=== PATIENT | male | born 1940 | race Caucasian/White ===

== ENCOUNTER → 2017-11-07 16:06 | Outpatient (CLI) | payer MEDICARE, BC, SELFPAY ==
[2017-11-07 16:52] LABS: Abs Immature Grans 0.01 k/cumm (0.0-0.09); Absolute Basophil Count 0.02 k/cumm (0.0-0.2); Absolute Eosinophil Count 0.09 k/cumm (0.0-0.7); Absolute Lymphocyte Count 2.15 k/cumm (1.2-3.4); Absolute Monocyte Count 0.44 k/cumm (0.11-0.7); Absolute Neutrophil Count 4.22 k/cumm (1.2-6.7); Basophils % 0.3; Eosinophils % 1.3; HCT 42.1 % (40.0-50.0); HGB 14.8 g/dL (13.5-17.5); Immature Grans % 0.1; Mean Corp. HGB Concentration 35.2 g/dL (32.0-36.0); Mean Corpuscular Hemoglobin 29.9 pg (27.0-33.0); Mean Corpuscular Volume 85.1 fL (80-95); Mean Platelet Volume 10.6 fL (8.0-11.0); Monocytes % 6.3; Platelet Count 248 x1000/uL (130-400); RBC 4.95 m/cumm (4.50-6.00); RBC Distribution Width 14.3 % (11.8-14.1); White Blood Cell Count 6.93 k/cumm (4.4-10.8)
[2017-11-07 17:51] LABS: ALT 21 U/L (12-78); AST 15 U/L (15-37); Albumin 4.3 g/dL (3.4-5.0); Alkaline Phosphatase 71 U/L (46-116); Anion Gap 8.6 mmol/L (3-11); BUN 18 mg/dL (7-18); CO2 27.4 mmol/L (21.0-32.0); CREATININE 1.08 mg/dL (0.70-1.30); Calcium 8.9 mg/dL (8.5-10.1); Chloride 105 mmol/L (98-107); Glucose 91 mg/dL (70-100); Potassium 4.1 mmol/L (3.5-5.1); Sodium 141 mmol/L (136-145); TSH (W/Ref FT4) 3.72 uIU/mL (0.358-3.74); Total Protein 7.3 g/dL (6.4-8.2); Vitamin B12 437 pg/mL (193-986)
[2017-11-07 18:08] LABS: Bilirubin, Total 0.6 mg/dL (0.2-1.0)
[2017-11-07 18:11] LABS: ESR 10 MM/HR (1-20)
== END ==
PROVIDERS: PCP Emergency Medicine; Visit Provider Family Medicine
DX: R41.3 Other amnesia (principal)
CPT/HCPCS: 36415; 80053; 85652; 82607; 84443; 85025

== ENCOUNTER → 2017-11-19 08:45 | Outpatient (CLI) | payer MEDICARE, BC, SELFPAY | PROVIDERS: PCP Emergency Medicine; Visit Provider Nurse Practitioner Adult Health | DX: H53.462 Homonymous bilateral field defects, left side (principal) | CPT/HCPCS: 99215 ==

== ENCOUNTER → 2017-11-24 00:47 | Outpatient (CLI) | payer MEDICARE, BC, SELFPAY ==
--- NOTE | 2017-11-24 08:45 | DI.REPORT_ITS ---
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 T 2 sagittal, T 1, T 2, FLAIR, diffusion and gradient echo axial sequences were performed. There is moderate to severe cerebral cortical atrophy. There are multiple high signal foci bilaterally in the white matter, likely reflecting small vessel disease. 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 There is an area of restricted diffusion seen in the right occipital lobe which could indicate an acute infarct. The splenium of the corpus callosum is involved. The ventricles are mildly dilated consistent with a degree of atrophy. The vascular flow voids appear intact although the right posterior cerebral artery is not well seen due to its small size. IMPRESSION: The findings are consistent with a subacute infarct in the right occipital lobe, in the posterior cerebral artery distribution.
== END ==
PROVIDERS: PCP Emergency Medicine; Visit Provider Nurse Practitioner Adult Health
DX: H53.462 Homonymous bilateral field defects, left side (principal); I63.541 Cerebral infarction due to unspecified occlusion or stenosis of right cerebellar artery; G31.1 Senile degeneration of brain, not elsewhere classified
CPT/HCPCS: 70551

== ENCOUNTER → 2017-11-26 01:54 | Outpatient (CLI) | payer MEDICARE, BC, SELFPAY ==
[2017-11-26 09:11] LABS: Hemoglobin A1C 5.6 % (4.5-6.2)
[2017-11-26 09:52] LABS: Cholesterol 164 mg/dL (50-200); HDL Cholesterol 37 mg/dL (40-60); LDL CHOLESTEROL 108 mg/dL (<100); Triglyceride 171 mg/dL (30-150)
== END ==
PROVIDERS: PCP Emergency Medicine; Visit Provider Psychiatry & Neurology Neurology
DX: I63.331 Cerebral infarction due to thrombosis of right posterior cerebral artery (principal); H53.462 Homonymous bilateral field defects, left side; R41.3 Other amnesia
CPT/HCPCS: 36415; 80061; 83721; 83036

== ENCOUNTER → 2017-12-03 08:30 | Outpatient (CLI) | payer MEDICARE, BC, SELFPAY | PROVIDERS: PCP Emergency Medicine; Visit Provider Psychiatry & Neurology Neurology | DX: I63.331 Cerebral infarction due to thrombosis of right posterior cerebral artery (principal) | CPT/HCPCS: 99214 ==

== ENCOUNTER 2017-12-04 00:46 | Outpatient (CLI) | payer MEDICARE, BC, SELFPAY ==
--- NOTE | 2017-12-04 07:30 | MERGE_ITS ---
*[facility]* *[facility]* [address] [place] [address] Date of study: 12/04/2017 Transthoracic Echocardiography M-mode, complete 2D, complete spectral Doppler, and color Doppler *STUDY CONCLUSIONS* Summary: 1. Left ventricle: The cavity size was normal. Wall thickness was increased in a pattern of mild LVH. Systolic function was normal. The estimated ejection fraction was 55-60%. Wall motion was normal; there were no regional wall motion abnormalities. 2. Right ventricle: The cavity size was normal. Systolic function was normal. 3. Inferior vena cava: The vessel was patent and normal in size. The respirophasic diameter changes were in the normal range (greater than or equal to 50%), consistent with normal central venous pressure. *PATIENT PRESENTATION* Height: 177.8cm ((70in) ) S/D Pressure: 117 / 60 Weight: 88.5kg ((194.6lb) ) BSA: 2.11m^2 Test start time: 07:40 AM. Test stop time: 08:30 AM. PERFORMING Unknown PERFORMING [facility] ORDERING Nelida Souza REFERRING Nelida Souza VOICE PATHOLOGIST RT Jason (R)(WILL)MEGHANN *PROCEDURE DATA* Procedure information: The patient was identified by two identifiers. This study was interpreted by [facility]. Pertinent images and digital data are archived for permanent storage and are available for subsequent review. No prior study was available for comparison. Study status: Routine. Transthoracic echocardiography. M-mode, complete 2D, complete spectral Doppler, and color Doppler. A Transthoracic Echocardiogram was performed. Scanning was performed from the parasternal, apical, subcostal, and suprasternal notch acoustic windows. Images were obtained using an [id number] cardiac ultrasound machine. Image quality was adequate. Study completion: The patient tolerated the procedure well. There were no complications. History: PMH: R [employer] LATHER stroke. CVA. *CARDIAC ANATOMY* Left ventricle: The cavity size was normal. Wall thickness was increased in a pattern of mild LVH. Systolic function was normal. The estimated ejection fraction was 55-60%. Wall motion was normal; there were no regional wall motion abnormalities. Findings consistent with diastolic dysfunction. There was no evidence of elevated ventricular filling pressure by Doppler parameters. Aortic valve: Trileaflet; mildly thickened leaflets. Mobility was not restricted. Doppler: Transvalvular velocity was within the normal range. There was no stenosis. There was mild regurgitation. VTI ratio of LVOT to aortic valve: 0.76. Valve area (VTI): 2.8cm^2. Indexed valve area (VTI): 1.3cm^2/m^2. Peak velocity ratio of LVOT to aortic valve: 0.66. Valve area (Vmax): 2.4cm^2. Indexed valve area (Vmax): 1.1cm^2/m^2. Mean velocity ratio of LVOT to aortic valve: 0.68. Valve area (Vmean): 2.5cm^2. Indexed valve area (Vmean): 1.2cm^2/m^2. Mean gradient (S): 6.4mm Hg. Peak gradient (S): 12.5mm Hg. Aorta: Aortic root: The aortic root was normal in size. Ascending aorta: The ascending aorta was normal in size. Mitral valve: Mildly thickened leaflets. Mobility was not restricted. Doppler: Transvalvular velocity was within the normal range. There was no evidence for stenosis. There was trivial regurgitation. Valve area by pressure half-time: 2.7cm^2. Indexed valve area by pressure half-time: 1.3cm^2/m^2. Left atrium: The atrium was normal in size. Right ventricle: The cavity size was normal. Systolic function was normal. Pulmonic valve: The pulmonary valve appears to be grossly normal. Doppler: Transvalvular velocity was within the normal range. There was no evidence for stenosis. There was trivial regurgitation. Tricuspid valve: Structurally normal valve. Doppler: Transvalvular velocity was within the normal range. There was no evidence for stenosis. There was mild regurgitation. Pulmonary artery: The main pulmonary artery was normal-sized. Pulmonary systolic pressure was in the range of 30mm Hg to 35mm Hg. Right atrium: The atrium was normal in size. Pericardium: There was no pericardial effusion. Systemic veins: Inferior vena cava: Well visualized. The vessel was patent and normal in size. The respirophasic diameter changes were in the normal range (greater than or equal to 50%), consistent with normal central venous pressure. Baseline ECG: Bradycardia. Measurements Left ventricle Value Reference LV ID, ED, PLAX 5.0 cm 3.5 - 6.0 LV ID, ES, PLAX 2.7 cm 2.1 - 4.0 LV PW thickness, ED, PLAX 1.1 cm LV end-diastolic volume, 1-p A2C 106 ml LV ejection fraction, 1-p A2C 55 % LV end-diastolic volume, 1-p A4C 85 ml LV ejection fraction, 1-p A4C 59 % LV e', lateral 0.104 m/sec LV E/e', lateral 7 LV e', medial 0.076 m/sec LV E/e', medial 9 LV e', average 0.09 m/sec LV E/e', average 8 Ventricular septum Value Reference IVS thickness, ED, PLAX 1.2 cm LVOT Value Reference LVOT ID, A-P 2.2 cm LVOT area 3.7 cm^2 LVOT peak velocity, S 1.17 m/sec LVOT mean velocity, S 0.82 m/sec LVOT VTI, S 29.2 cm LVOT peak gradient, S 5.5 mm Hg LVOT mean gradient, S 3 mm Hg Stroke volume (SV), LVOT DP 107 ml Stroke index (SV/bsa), LVOT DP 51 ml/m^2 Aortic valve Value Reference Aortic valve peak velocity, S 1.8 m/sec Aortic valve mean velocity, S 1.2 m/sec Aortic valve VTI, S 38.5 cm Aortic mean gradient, S 6.4 mm Hg Aortic peak gradient, S 12.5 mm Hg VTI ratio, LVOT/AV 0.76 Aortic valve area, VTI 2.8 cm^2 Velocity ratio, peak, LVOT/AV 0.66 Aortic valve area, peak velocity 2.4 cm^2 Velocity ratio, mean, LVOT/AV 0.68 Aortic valve area, mean velocity 2.5 cm^2 Aortic valve area/bsa, mean velocity 1.2 cm^2/m^2 Aortic regurg deceleration 245 cm/s^2 Aortic regurg pressure half-time 430 ms Aorta Value Reference Aortic root ID, ED 3.6 cm Ascending aorta ID, A-P, S 3.7 cm RVOT Value Reference RVOT VTI, S 17.0 cm Left atrium Value Reference LA ID, A-P, ES 3.9 cm LA ID/bsa, A-P 1.9 cm/m^2 <=2.2 LA area, ES, A4C 18.3 cm^2 8.8 - 23.4 LA area, ES, A2C 19 cm^2 LA volume/bsa, ES, 1-p A4C 26 ml/m^2 LA volume, ES, 2-p 51 ml LA volume/bsa, ES, 2-p 24 ml/m^2 LA/aortic root ratio 1.08 Mitral valve Value Reference Mitral E-wave peak velocity 0.69 m/sec Mitral A-wave peak velocity 0.82 m/sec Mitral deceleration time (H) 285 ms 150 - 230 Mitral pressure half-time 83 ms Mitral E/A ratio, peak 0.83 Mitral valve area, PHT, DP 2.7 cm^2 Pulmonary veins Value Reference Pulmonary vein peak velocity, S 0.52 m/sec Pulmonary vein peak velocity, D 0.46 m/sec Pulmonary vein velocity ratio, peak, 1.12 S/D Pulmonary vein A-wave reversal peak 0.38 m/sec velocity Pulmonary vein A-wave reversal 193 ms duration Tricuspid valve Value Reference Tricuspid regurg peak velocity 2.9 m/sec Tricuspid peak RV-RA gradient 32.9 mm Hg Right atrium Value Reference RA area, ES, A4C 17.1 cm^2 8.3 - 19.5 Legend: (L) and (H) siomara values outside specified reference range. I have personally reviewed the images and have reviewed and edited the reported findings. Electronically signed by Gamal Rodrigez 12/04/2017 09:21
--- NOTE | 2017-12-24 09:46 | ZIOP_ITS ---
ZIO PATCH REPORT DATE OF DICTATION December 24, 2017 STUDY INDICATION Stroke REQUESTING PROVIDER Nelida Souza M.D. FINDINGS The patient was monitored for 14 days. COMMENTS The predominant underlying rhythm was sinus rhythm with bundle branch block. Average heart rate in sinus. 64 beats per minute. Range 38 to 138 beats per minute. There was rare ectopy. There were 6 episodes of supraventricular tachycardia. Average heart rate 125 beats per minute. Range 95 to 154 beats per minute. The longest episode lasted 17 beats. There was nocturnal bradycardia. There were no pauses greater than 3 seconds. There was no higher degree heart block. There were 4 patient events. All events correlated with sinus rhythm. FINAL INTERPRETATION Minor atrial arrhythmias. José Miguel Andersen M.D. JT/ariadne T - 12/24/2017
== END 2017-12-04 00:47 ==
PROVIDERS: PCP Emergency Medicine; Visit Provider Psychiatry & Neurology Neurology
DX: I63.331 Cerebral infarction due to thrombosis of right posterior cerebral artery (principal); I50.1 Left ventricular failure, unspecified; I45.4 Nonspecific intraventricular block; I47.1 Supraventricular tachycardia
CPT/HCPCS: 0296T; 93306; 93225

== ENCOUNTER → 2017-12-05 02:45 | Outpatient (CLI) | payer MEDICARE, BC, SELFPAY ==
--- NOTE | 2017-12-05 14:33 | DI.REPORT_ITS ---
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 The distal internal carotid arteries are unremarkable without evidence of significant stenosis, aneurysm or occlusion. The anterior cerebral arteries are unremarkable. No significant stenosis, occlusion or aneurysm . The middle cerebral arteries are unremarkable without significant stenosis, occlusion or aneurysm. The left posterior cerebral artery is unremarkable without stenosis, occlusion or aneurysm. There is occlusion of the P2 segment of the right posterior cerebral artery noted. The distal vertebral artery and basilar artery are unremarkable without stenosis , occlusion or aneurysm. IMPRESSION: Occlusion of the P2 segment of the right posterior cerebral artery. MRA OF THE NECK: Routine noncontrast examination was performed. The common carotid arteries are unremarkable without dissection, occlusion or significant stenosis. The internal carotid arteries are unremarkable without evidence of stenosis, occlusion or dissection. The external carotid arteries are unremarkable without significant stenosis or occlusion. The right vertebral artery is dominant. No significant stenosis or occlusion is seen. The left vertebral artery is absent at its origin. Portions of an attenuated distal left vertebral artery are seen just proximal to its confluence with the right vertebral artery. IMPRESSION: Findings suspicious for occlusion of the left vertebral artery. Carotid ultrasound may be obtained for further evaluation.
== END ==
PROVIDERS: PCP Emergency Medicine; Visit Provider Psychiatry & Neurology Neurology
DX: I63.331 Cerebral infarction due to thrombosis of right posterior cerebral artery (principal); I63.012 Cerebral infarction due to thrombosis of left vertebral artery
CPT/HCPCS: 70544; 70547

== ENCOUNTER → 2017-12-09 12:47 | Outpatient (BNVA) | payer MEDICARE, BC, SELFPAY | PROVIDERS: PCP Emergency Medicine; Visit Provider Urology | DX: N40.1 Benign prostatic hyperplasia with lower urinary tract symptoms (principal); N13.8 Other obstructive and reflux uropathy | CPT/HCPCS: 99213 ==

== ENCOUNTER 2017-12-17 02:50 | Outpatient (CLI) | payer MEDICARE, BC, SELFPAY ==
--- NOTE | 2017-12-17 10:28 | DI.CT_ITS ---
SYMPTOM/DIAGNOSIS: CEREBRAL INFARCTION, I63.9, ? LT VERTEBRAL OCCLUSION ON MRA CTA HEAD AND NECK: CT angiography was performed with multi slice acquisition and multi planar and 3D reconstruction. NECK: Comparison is made with MRA of the brain from 12/05/17. There is atherosclerosis of the thoracic aorta which is otherwise unremarkable. The right common carotid is unremarkable. No evidence of stenosis, occlusion or dissection. The right internal carotid artery is unremarkable without evidence of dissection , occlusion or stenosis. The right external carotid artery is unremarkable without stenosis or occlusion. The right vertebral artery is unremarkable. No stenosis, occlusion or aneurysm is seen. The left common carotid artery is unremarkable without stenosis, occlusion or dissection. The left external carotid artery is unremarkable without significant stenosis or occlusion. The left internal carotid artery is unremarkable without significant stenosis, occlusion or aneurysm. The left vertebral artery is not visualized at its origin. It is thin and intermittently visualized beginning at the level of the C 3 vertebral body. The thyroid gland is heterogeneous with several areas of decreased attenuation present suggesting thyroid nodules. Follow up as clinically appropriate. The lung apices appear clear. IMPRESSION: Non visualization of the left vertebral artery from its origin suggesting occlusion. Intermittent visualization of the left vertebral artery beginning at the C 3 level. HEAD: There is mild calcification of the cavernous portions of the internal carotid arteries but no significant stenosis is seen. No aneurysmal dilatation or occlusion is present. The anterior cerebral arteries are unremarkable without significant stenosis, occlusion or aneurysm. The middle cerebral arteries are unremarkable without significant stenosis, occlusion or aneurysm. The basilar artery is patent without evidence of stenosis, occlusion or aneurysm. The left posterior cerebral artery is unremarkable. The P2 segment of the right cerebral artery is not visualized. IMPRESSION: Findings suspicious for occlusion of the P2 segment of the right posterior cerebral artery. Mild calcification of the cavernous portions of the internal carotid arteries bilaterally.
[2017-12-17] MEDS: Omnipaque 350 MG/ML 100 ML BTL IJ (10:31)
== END 2017-12-17 03:10 ==
PROVIDERS: PCP Emergency Medicine; Visit Provider Psychiatry & Neurology Neurology
DX: I63.9 Cerebral infarction, unspecified (principal); I66.21 Occlusion and stenosis of right posterior cerebral artery; E04.2 Nontoxic multinodular goiter
CPT/HCPCS: 70496; 70498; J3490

== ENCOUNTER 2017-12-24 09:00 | Outpatient (CLI) | payer MEDICARE, BC, SELFPAY | END 2017-12-24 09:20 | PROVIDERS: PCP Emergency Medicine; Referring Provider Psychiatry & Neurology Neurology; Visit Provider Student in an Organized Health Care Education/Training Program | DX: I63.9 Cerebral infarction, unspecified (principal); I49.8 Other specified cardiac arrhythmias | CPT/HCPCS: 0298T ==

== ENCOUNTER 2018-01-05 09:48 | Outpatient (CLI) | payer MEDICARE, BC, SELFPAY ==
[2018-01-06 08:58] LABS: PSA, Screening 1.9 ng/ml (0-6.5)
== END 2018-01-05 10:08 ==
PROVIDERS: PCP Emergency Medicine; Visit Provider Urology
DX: N40.1 Benign prostatic hyperplasia with lower urinary tract symptoms (principal); Z12.5 Encounter for screening for malignant neoplasm of prostate; N13.8 Other obstructive and reflux uropathy
CPT/HCPCS: 36415; 84153

== ENCOUNTER → 2018-01-07 08:17 | Outpatient (BNVA) | payer MEDICARE, BC, SELFPAY | PROVIDERS: PCP Emergency Medicine; Visit Provider Psychiatry & Neurology Neurology | DX: I65.09 Occlusion and stenosis of unspecified vertebral artery (principal); H53.469 Homonymous bilateral field defects, unspecified side; I63.331 Cerebral infarction due to thrombosis of right posterior cerebral artery; E78.5 Hyperlipidemia, unspecified; G47.00 Insomnia, unspecified | CPT/HCPCS: 99213; 99214 ==

== ENCOUNTER 2018-06-12 01:08 | Outpatient (CLI) | payer MEDICARE, BC, SELFPAY ==
[2018-06-12 08:33] LABS: Cholesterol 123 mg/dL (50-200); HDL Cholesterol 38 mg/dL (40-60); LDL CHOLESTEROL 65 mg/dL (<100); Triglyceride 179 mg/dL (30-150)
== END 2018-06-12 01:28 ==
PROVIDERS: PCP Emergency Medicine; Visit Provider Emergency Medicine
DX: E78.5 Hyperlipidemia, unspecified (principal); I63.331 Cerebral infarction due to thrombosis of right posterior cerebral artery
CPT/HCPCS: 36415; 80061; 83721

== ENCOUNTER 2018-10-20 11:55 | Outpatient (CLI) | payer MEDICARE, BC, SELFPAY ==
--- NOTE | 2018-10-20 12:00 | DI.RAD_ITS ---
SYMPTOMS/DIAGNOSIS: LT KNEE PAIN, M25.569 LEFT KNEE: Three views. The articular surfaces are well maintained. The bones are intact and normally mineralized. The soft tissues are unremarkable. IMPRESSION: Negative left knee.
== END 2018-10-20 12:15 ==
PROVIDERS: PCP Emergency Medicine; Visit Provider Emergency Medicine
DX: M25.562 Pain in left knee (principal)
CPT/HCPCS: 73562

== ENCOUNTER → 2019-01-15 10:10 | Outpatient (BNVA) | payer MEDICARE, BC, SELFPAY | PROVIDERS: PCP Emergency Medicine; Referring Provider Emergency Medicine; Visit Provider Urology | DX: N40.1 Benign prostatic hyperplasia with lower urinary tract symptoms (principal); N13.8 Other obstructive and reflux uropathy | CPT/HCPCS: 51798; 99213 ==

== ENCOUNTER 2019-01-15 10:50 | Outpatient (CLI) | payer MEDICARE, BC, SELFPAY ==
[2019-01-15 12:28] LABS: BUN 17 mg/dL (7-18); CREATININE 1.15 mg/dL (0.70-1.30)
[2019-01-18 11:33] LABS: PSA, Diagnostic 1.8 ng/ml (0-6.5)
== END 2019-01-15 11:10 ==
PROVIDERS: PCP Emergency Medicine; Visit Provider Urology
DX: N40.1 Benign prostatic hyperplasia with lower urinary tract symptoms (principal); N13.8 Other obstructive and reflux uropathy
CPT/HCPCS: 36415; 51798; 84520; 99213; 82565; 84153

== ENCOUNTER 2020-02-01 12:31 | Outpatient (REF) | payer MEDICARE, BC, SELFPAY ==
[2020-02-01 14:23] LABS: Calculated LDL 43 mg/dL (<100); Cholesterol 117 mg/dL (<200); HDL Cholesterol 33 mg/dL (40-60); Triglyceride 207 mg/dL (<150)
== END 2020-02-01 12:51 ==
LOC: LBN 12:31
PROVIDERS: PCP Emergency Medicine; Visit Provider Emergency Medicine
DX: E78.5 Hyperlipidemia, unspecified (principal)
CPT/HCPCS: 80061

== ENCOUNTER → 2020-02-17 10:21 | Outpatient (BNVA) | payer MEDICARE, BC, SELFPAY | PROVIDERS: PCP Emergency Medicine; Referring Provider Emergency Medicine; Visit Provider Physical Therapy Assistant | DX: Z12.11 Encounter for screening for malignant neoplasm of colon (principal); Z86.010 Personal history of colon polyps ==

== ENCOUNTER 2020-02-21 03:24 | Outpatient (CLI) | payer MEDICARE, BC, SELFPAY ==
[2020-02-22 11:42] LABS: SARS-CoV-2 RNA Source Nasal/Nares
[2020-02-22 11:43] LABS: SARS-CoV-2 RNA Not Detected (NotDetected)
== END 2020-02-21 03:44 ==
PROVIDERS: PCP Emergency Medicine; Visit Provider Surgery
DX: Z01.818 Encounter for other preprocedural examination (principal); Z11.59 Encounter for screening for other viral diseases
CPT/HCPCS: U0003

== ENCOUNTER 2020-02-24 08:00 | Day surgery (SDC) | payer MEDICARE, BC, SELFPAY ==
[2020-02-24 08:38] VITALS: BP 119/74; PULSE 62; RESP 16; TEMP 36.4; O2SAT 99
[2020-02-24] MEDS: Lactated Ringers 1,000 ML 80 ML IV (09:10)
--- NOTE | 2020-02-24 10:03 | BOWEL_PTH ---
PATIENT: Sb Aguilar LOC: [facility] U#:[id number] AGE/SX: 79/M ROOM: RE02/24/[address]: Judy Dickey : 1940 BED: DIS: 02/24/2020 SPEC #: [id number] RECD: 02/24/20 13:02 STATUS: PATRICA REMigue #: [id number] SUJATA: 02/24/20 10:[address]: Judy Dickey DEPT: Surgical Specimen RECD BY: Jackelin Jesus ENTERED: 02/24/20 13:03 SP TYPE: Bowel OTHR DR: Jez Bucio DO Tissues: 1 - BIOPSY BOWEL 2 - BIOPSY BOWEL Procedures: GROSS AND MICRO LEVEL 4 Comments: [id number] ([id number] [facility] [place]#)
--- NOTE | 2020-02-24 10:21 | COLE_ITS ---
Date of service: 02/24/20 Time of Service: 10:21 Colonoscopy Report Date of procedure: 02/24/20 Pre-op diagnosis general: A. polyps Post-op diagnosis procedure note: other (A. polyps. diverticula ) Procedure: CE & cold polypectomy x 2 Surgeon: Judy Dickey Anesthesia proc note operative: GETA Estimated blood loss (mL): 0 Pathology: other Complications: None Disposition: same day Prep: Miralax/Dulcolax Retraction Time: 10 mins Procedure Description: After informed consent was obtained the patient was taken to the procedure room and placed in a left decubitous position. Monitors were applied and a time out was done. The patients name, date of , procedure, allergies to medications and metal in their body was reviewed. The patient was then sedated. Once sedated and comfortable a rectal exam was done. External exam was normal. Internal exam revealed a normal sphincter tone and no palpable masses. The prostate . The scope was then introduced and retrofelexed. No internal hemorrhoids were identified. The scope was then advanced to the cecum w/out difficulty. The TI and appendiceal orifice were identified. The prep was good. The scope was then slowly retracted over 10 minutes back into the rectum. Polyps were removed at 80 & 70cm w/ cold biting forcept. There are moderate diverticula, confined to the sigmoid colon w/ no active bleeding or infection. The scope was removed and the patient was woken up and taken back to Same day surgery in stable condition. The patient tolerated the procedure well and there were no immediate complica tions. Follow up: The patient should follow up in 5 years, IF still healthy for anaesthesia, unless they develop changes in bowel habits or other new gastrointestinal complaints.
--- NOTE | 2020-02-24 10:26 | W.PM.DSUDISC ---
Discharge Plan Disposition Patient Disposition: HOME Condition: Good Discharge Details Reason For Visit: colon scope Attending Provider: Judy Dickey Primary Care Provider: Jez Bucio Home Meds and New Rx's Prescriptions: Continued amlodipine 2.5 mg tablet 2.5 mg PO DAILY Qty: 90 RF: 3 atorvastatin 20 mg tablet 20 mg PO DAILY Qty: 90 RF: 4 clopidogrel [Plavix] 75 mg tablet 75 mg PO DAILY Qty: 90 RF: 12 Discontinued polyethylene glycol 3350 17 gram/dose powder 238 g PO ONCE Qty: 238 RF: 0 bisacodyl [Dulcolax (bisacodyl)] 5 mg tablet,delayed release (DR/EC) 5 mg PO ONCE Qty: 4 RF: 0 Discharge Instructions Additional Instructions: Findings:x2 polyp Resume plavix and ASA in 5 days Follow up:will send a letter in 2-3 wks w/ results of the polyps and when to repeat the scope. Please call if you develop: fevers >101.5 Nausea or Vomiting Abdominal pain that is not transient DAY SURGERY UNIT POST COLONOSCOPY INSTRUCTIONS 1. Because there will be medication in your system for the next 24 hours, you may feel a little sleepy. Your coordination will be affected. Therefore: a. Do not drive or operate dangerous equipment for 24 hours. b. Do not drink alcohol beverages for 24 hours (not even beer). c. Plan to go home and rest for the day. 2. Generally there are no restrictions on your activity after a day or so has gone by, but you may feel a bit fatigued for a few days. 3 After you arrive home you may have a light meal and return to a normal diet as you can tolerate it without feeling sick to your stomach. 4. After surgery, you may feel pain or discomfort. This should be only transient, but if it persists please contact your doctor. 5. If there are any questions regarding the findings of your procedure, please feel free to contact your doctor. 6. If you are unable to contact your doctor with a problem, contact the hospital at [phone]. 7. Continue all your regular medications unless directed otherwise. I understand the above instructions and have no questions. Signature of Patient or Responsible Adult Escort Date/Time Name of Responsible Adult Escort Signature of Nurse Date/Time Activity:: no lifting over 20#'s or strenuous activity x 24 hrs Diet:: small light meals x 24 hrs Discharge Orders Discharge Orders: Discharge Order (Routine); Ordered 02/24/20 Ordered By: Judy Dickey DS: Diagnosis Discharge Diagnosis (1) Tubular adenoma of colon: Status: Chronic
[2020-02-24 10:46] VITALS: BP 131/80; PULSE 57; RESP 20; TEMP 36.5; O2SAT 98
== END 2020-02-24 11:21 | disposition home or self-care (01) ==
PROVIDERS: PCP Emergency Medicine; Visit Provider Surgery
PROC: 0DJD8ZZ Inspection of Lower Intestinal Tract, Via Natural or Artificial Opening Endoscopic (ICD-10-PCS; CPT 45378; principal; 2020-02-24 09:15)
DX: Z12.11 Encounter for screening for malignant neoplasm of colon (principal); D12.4 Benign neoplasm of descending colon; Z86.010 Personal history of colon polyps; E78.5 Hyperlipidemia, unspecified; Z86.73 Personal history of transient ischemic attack (TIA), and cerebral infarction without residual deficits
CPT/HCPCS: 45380; 88305; J2001

== ENCOUNTER → 2020-04-18 07:43 | Outpatient (BNVA) | payer MEDICARE, BC, SELFPAY | PROVIDERS: PCP Emergency Medicine; Referring Provider Emergency Medicine; Visit Provider Urology | DX: N40.1 Benign prostatic hyperplasia with lower urinary tract symptoms (principal); N13.8 Other obstructive and reflux uropathy; Z12.5 Encounter for screening for malignant neoplasm of prostate; Z98.890 Other specified postprocedural states | CPT/HCPCS: 99213; 99214 ==

== ENCOUNTER 2020-04-18 10:06 | Outpatient (REF) | payer MEDICARE, BC, SELFPAY ==
[2020-04-18 17:56] LABS: PSA, Diagnostic 2.1 ng/mL (0.0-6.5)
== END 2020-04-18 10:26 ==
LOC: LBN 10:06
PROVIDERS: PCP Emergency Medicine; Visit Provider Urology
DX: N40.1 Benign prostatic hyperplasia with lower urinary tract symptoms (principal); N13.8 Other obstructive and reflux uropathy
CPT/HCPCS: 84153

== ENCOUNTER 2020-08-11 18:04 | Outpatient (REF) | payer MEDICARE, BC, SELFPAY ==
[2020-08-11 13:41] LABS: HCT 45.6 % (40.0-50.0); HGB 15.2 g/dL (13.5-17.5); MCHC 33.3 % (32.0-36.0); MPV 10.4 fL (8.0-11.0); Platelet Count 255 10^3/uL (130-400); RBC 5.24 10^6/uL (4.36-5.78); RDW 13.6 % (11.8-14.1); RDW-SD 43.7 fL; WBC 5.79 10^3/uL (4.4-10.8)
[2020-08-11 13:45] LABS: ESR 3 mm//hr (0-20)
[2020-08-11 15:07] LABS: ALT 31 U/L (16-63); AST 20 U/L (15-37); Albumin 4.2 g/dL (3.4-5.0); Alkaline Phosphatase 98 U/L (46-116); Anion Gap 9.6 mmol/L (3-11); BUN 16 mg/dL (7-18); Bilirubin, Total 0.7 mg/dL (0.2-1.0); CO2 28.4 mmol/L (21.0-32.0); CREATININE 1.2 mg/dL (0.70-1.30); Calcium 9.2 mg/dL (8.5-10.1); Chloride 107 mmol/L (98-107); Estimated GFR 58.71 (mL/min/1.73m2); Glucose 104 mg/dL (74-106); Potassium 4.4 mmol/L (3.5-5.1); Sodium 145 mmol/L (136-145); TSH 3.57 uIU/mL (0.36-3.74); Total Protein 7.1 g/dL (6.4-8.2)
[2020-08-11 15:25] LABS: C-Reactive Protein 0.08 mg/dL (0.0-0.3)
== END 2020-08-11 18:05 | disposition home or self-care (01) ==
LOC: LBN 18:04
PROVIDERS: PCP Emergency Medicine; Visit Provider Emergency Medicine
DX: R06.02 Shortness of breath (principal); R53.83 Other fatigue; E03.9 Hypothyroidism, unspecified; I10 Essential (primary) hypertension
CPT/HCPCS: 80053; 85027; 85652; 84443; 86140

== ENCOUNTER 2020-08-15 22:12 | Outpatient (CLI) | payer MEDICARE, BC, SELFPAY ==
--- NOTE | 2020-08-15 14:53 | DI.RAD_ITS ---
Exam(s) XR CHEST 2V PA LATERAL EXAM: XR CHEST 2V PA LATERAL CLINICAL HISTORY: SOB,fatigue, r05, hypertension TECHNIQUE: 2D digital imaging was performed. COMPARISON: No exams were available for comparison FINDINGS: The heart is not enlarged. The lungs are clear and well expanded. No pleural effusion seen. Mediastin al contours appear intact. IMPRESSION: Normal chest. RADIATION DOSE DELIVERED: Total DLP
== END 2020-08-15 22:32 ==
PROVIDERS: PCP Emergency Medicine; Visit Provider Emergency Medicine
DX: R06.02 Shortness of breath (principal); R53.83 Other fatigue; I10 Essential (primary) hypertension
CPT/HCPCS: 71046

== ENCOUNTER → 2021-04-20 09:42 | Outpatient (BNVA) | payer MEDICARE, BC, SELFPAY | PROVIDERS: PCP Emergency Medicine; Referring Provider Emergency Medicine; Visit Provider Urology | DX: N40.1 Benign prostatic hyperplasia with lower urinary tract symptoms (principal); N13.8 Other obstructive and reflux uropathy | CPT/HCPCS: 99213 ==

== ENCOUNTER 2021-04-20 11:57 | Outpatient (REF) | payer MEDICARE, BC, SELFPAY ==
--- OUTSIDE RECORDS SUMMARY | 2021-04-20 12:00 | XMS_ITS ---
:1940 Author Care Team Providers Name Role Phone ELLEN HAY Primary Care Provider [phone] [facility] MEDICAL RECORDS OTHER [phone] Allergies Code Code System Name Reaction Severity Status Onset NKDA ? Medications Name Status Start Date Stop Date ? ? amlodipine 2.5 mg tablet Active ? Not acosta ilable Take 1 tablet every day by oral route. atorvastatin 20 mg tablet Active ? Not av ailable Take 1 tablet every day by oral route at bedtime. doxepin 10 mg capsule Completed ? 02/13/2021 Take 1 capsule every day by oral route at bedtime. Plavix 75 mg tablet Active ? Not availabl e Take 1 tablet every day by oral route. zaleplon 10 mg capsule Active ? Not avail able Take 1 PO upon awakening at night zolpidem 5 mg tablet Completed ? 04/10/2021 take 1 PO night of sleep study if needed Problems Name Status Onset Date Source ? Hypothyroidism Active 11/06/2020 ? Essential Hypertension Active 11/06/2020 ? Hypertensive Disorder Active 11/06/2020 ? Vertebral Artery Syndrome Active 11/06/2020 ? Sleep Disorder Active 11/06/2020 ? Fatigue Active 11/06/2020 ? Dyspnea Active 11/06/2020 ? Insomnia Active 02/13/2021 ? Daytime Somnolence Active 02/13/2021 ? Obstructive Sleep Apnea Syndrome Active ? ? Procedures Date Name Performed by ? ? Appendectomy Information not avai lable Results Lab Results None recorded. 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 02/13/2021 Insomnia; Daytime Somnolence Mireya Porter CASTING MACHINE OPERATOR HELPER: [address] [place] [phone], Ph. 11/07/2020 Insomnia; Daytime Somnolence Mireya Porter, CASTING MACHINE OPERATOR HELPER: [address] [place] [phone], Ph. Social History Tobacco Smoking Status Never Smoker Vaccine List None recorded. Plan of Care Reminders Provider Appointments None ? ? recorded. Lab None ? ? recorded. Referral None ? ? recorded. Procedures None ? ? recorded. Surgeries None ? ? recorded. Imaging None ? ? recorded. Vitals 04/10/2021 08:30AM Office 30 Height Weight BMI Blood Pressure 177.8 cm 88.45 kg 28 kg/m2 110/60 mm[Hg] 02/13/2021 08:00AM Office 30 Height Weight BMI Blood Pressure 177.8 cm 90.26 kg 28.6 kg/m2 118/62 mm[Hg] 11/07/2020 09:45AM New Patient 45 Height Weight BMI Blood Pressure 177.8 cm 90.45 kg 28.6 kg/m2 124/73 mm[Hg]
--- OUTSIDE RECORDS SUMMARY | 2021-04-20 12:00 | XMS_ITS | Encounter Summary ---
:1940 Author Care Team Providers Name Role Phone Jez Fortunato Primary Care Provider [phone] [facility] Medical Records OTHER [phone] Reason for Visit None recorded. Assessment and Plan 1. Insomnia Last visit he reported having sleep maintenance insomnia occurring every night. He generally falls asleep easily but he wakes a couple of times a night to urinate and then can't get back to sleep for 2-4 hours. I prescribed doxepin 10 mg QHS at that time. He tried this only on two nights and did not feel it improved his sleep and it caused significant groggine ss the following day. He still has insomnia most every night. At this time I am orde ring a PSG as below. 2. Daytime somnolence Sb has symptoms of fatigue and nocturia in the setting of HTN which could be indicative of an underlying KRYSTAL . His Erie score is only 1/3 though indicating a low pretest probability of KRYSTAL. He denies snoring but he has slept alone for 20 years so it is quite possible monika t he does snore and is just not aware of it. He recently started on doxepin 10 mg QHS for sleep maintenance insomnia with no improvement in insomnia. At this time I have recommended proceeding with a PSG and he agrees. I discussed the pathophysiology of obstructive sleep apnea and the potential consequences of untreated KRYSTAL including how it relates to his symptoms and comorbidities. I ordered a polysomnogram and discussed what will take place the night of the sleep study. He is given a Rx for Ambien to take if needed the night of the study and is advised that if taken he wi ll need to not drive for at least eight hours after taking or longer if for any residu al drowsiness. Also will need to use caution when getting up at night after taking Am sherrell. I will see him back to review the results as soon as they are available. ? sleep study, baseline diag nostic polysomnogram* ? zolpidem 5 mg tablet Discussion Note: None recorded.Patient educational handouts: No information available. Plan of Care Reminders Provider Appointments Office 30 05/16/2021 Thomas Porter, 8:30AM COMPUTER SYSTEMS INFORMATION DIRECTOR Lab None ? ? recorded. Referral None ? ? recorded. Procedures None ? ? recorded. Surgeries None ? ? recorded. Imaging None ? ? recorded. Medications Name Start Date ? ? amlodipine 2.5 mg tablet ? Take 1 tablet every day by oral route. atorvastatin 20 mg tablet ? Take 1 tablet every day by oral route at bedtime. Plavix 75 mg tablet ? Take 1 tablet every day by oral route. zaleplon 10 mg capsule ? Take 1 PO upon awakening at night Medications Administered None recorded. Vitals Height Weight BMI Blood Pressure 5 ft 10 in 199 lbs 28.6 kg/m2 118/62 mm[Hg] Results Lab Results None recorded. Allergies Code Code System Name Reaction Severity Onset NKDA ? ? ? Problems Name Status Onset Date Source ? [...] ? ? Appendectomy Information not avai lable Vaccine List None recorded. Social History Tobacco Smoking Status Never Smoker What is your level of alcohol None consumption? What is your level of caffeine Occasional Notes: 1-2 coffees a day consumption? Do you or have you ever used any N other forms of tobacco or nicotine? Are you blind or do you have Y Notes: r eading only difficulty seeing? Do you use any illicit or N recreational drugs? What is your code status? 0 Are you deaf or do you have serious N difficulty hearing? Functional Status Are you blind or do you Yes have difficulty seeing?? Past Encounters 02/13/2021 Insomnia; Daytime Somnolence Mireya Porter, COMPUTER SYSTEMS INFORMATION DIRECTOR: [address] [place] [phone], Ph. History of Present Illness Note: <div>Sb Aguilar has a visit for KRYSTAL follow-up.</div><div>
</div><div>Sb was seen by me on 11/07/20. He has a medical history to include HTN, hypothyroidism, anemia, BPH and vertebral artery stroke. </div><div>He noted symptoms of sleep maintenance insomnia waking a couple of times a night to urinate and then can't get back to sleep for 2-4 hours. He had never taken anything for sleep, prescription or OTC. It is possible KRYSTAL is responsible for this as it may be causing the nocturia which then leads to insomnia. Last visit I prescribed doxepin 10 mg QHS with plan to get PSG for ongoing problems. He was also instructed to get back to bed when feeling sleepy rather than falling asleep in his recliner.</div><div>
< /div><div>Sb tells me he tried the doxepin only two nights total about a month a part. He says the problem was the next day he "logey" all day. He also did not feel he slept any better. He continues to have low energy all day. </div><div>
</div><div>ESS today 09/28</div>Review of Systems: ROS as noted in the HPI Review of Systems None recorded. Physical Exam ? Notes: <div>General: A&O, well groo med {{over weight obese morbidly obese normal weight* thin}}.
HEAD: no rmocephalic & atraumatic.
EYES: non icteric.
LUNGS: CTA all f ields. Good air movement.
CARDIO: RRR without murmur, gallop or thrill. <b r>NEURO: A&O. Normal gait.
PSYCH: Normal mood and affect.
CUTANEOUS: no overt lesions or rashes</div>
--- OUTSIDE RECORDS SUMMARY | 2021-04-20 12:00 | XMS_ITS | Encounter Summary ---
:1940 Author Care Team Providers Name Role Phone Jez Fortunato Primary Care Provider [phone] [facility] Medical Records OTHER [phone] Reason for Visit None recorded. Assessment and Plan 1. Insomnia He reported having sleep maint enance insomnia occurring every night. He generally falls asleep easily but he wakes a couple of times a night to urinate and then can't get back to sleep for 2-4 hours. I prescribed doxepin 10 mg QHS a nd he tried this only on two nights and did not feel it improved his sleep and it caused significant grogginess the following day. He says his insomnia is most ev cameron night of the week now and each time he loses 2-3 hours of sleep. At this time I offered a Rx of zaleplon and he is interested in trying this. It is the best medication for the type of insomnia he is experiencing and given it's short half life he hopefully will not experience the morning grogginess that he did with doxepin. I covered all ADR's including risk of falls, memory loss and dependency wit h this class of drug. He signed a contro lled drug contract today. I suggested he keep only one tablet by bedside so there is no chance that he will forget he has already taken one and take more than pre scribed. I will see him back in one [facility]. He is asked to call the clinic for any sleep related questions or concerns. Drowsy driving precautions were reviewed. I provided greater than 30 minutes in e care of this patient, more than half the time was spent in [id number] counseling. ? zaleplon 10 mg capsule 2. 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 I discussed a tri al of CPAP (he has [employer] so this would be the only initial treatment option). He is fi rst going to try the medication as above. If this is not effective we will discuss CP AP again at his follow-up. Unfortunately his insurance may not cover CPAP given AHI w as <5/hr. Discussion Note: None recorded.Patient educational handouts: No information available. Plan of Care Reminders Provider Appointments Office 30 05/16/2021 Thomas Porter, 8:30AM HEARING CARE PRACTITIONER Lab None ? ? recorded. Referral None [...] BMI Blood Pressure 5 ft 10 in 195 lbs 28 kg/m2 110/60 mm[Hg] Results Lab Results None recorded. Allergies [...] you Yes have difficulty seeing?? Past Encounters 04/10/2021 Insomnia; Obstructive Sleep Apnea Syndro me Mireya Porter, HEARING CARE PRACTITIONER: [address] [place] [phone], Ph. History of Present Illness Note: <div>Sb Aguilar has a visit for PSG results and insomnia follow-up..</div><div>
</div><div>Sb was seen by me on 02/13/21. He has a medical history to include HTN, hypothyroidism, anemia, BPH and vertebral artery stroke. </div><div>He noted sympt oms of sleep maintenance insomnia waking a couple of times a night to urinate and then can'tget back to sleep for 2-4 hours. He had never taken anything for sleep, prescription or OTC. It is possible KRYSTAL is responsible for this as it may be causing the nocturia which then leads to insomnia. He was I prescribed doxepin 10 mg QHS and at last visit said he only took it two nights total about a month a part. He says the problem was the next day he "logey" all day. He also did not feel he slept any better. He continues to have low energy all day. PSG ordered last visit.</div ><div>Polysomnogram was completed on {{DATE 02/21/2021}} (BMI 28.55) and I reviewed the results with {{him* her}} in detail today. Sleep efficiency was {{80 45#}}%, AHI {{NUMBER 3.5#}}/hr, RDI{{NUMBER 11.9#}}/hr, REM AHI {{NUMBER 5.4#}}/hr, REM RDI {{NUMBER 7.2#}}/hr, supine AHI N/A, right lateral AHI {{NUMBER 7#}}/hr, left lateral AHI {{NUMBER 1#}}/hr, sp02 conner {{NUMBER 84#}}%, {{NUMBER 1.5#}} minutes were spent at a saturation <88%, arousal index {{NUMBER 15#}}/hr, PLMi {{NUMBER 21.4#}}/hr, PLM arousal index {{NUMBER 2.3#}}/hr. EKG showed {{NSR*}}.</div><div><br&g t;</div><div>
</div><div>Sb says the night of the study was worse than a typical night at home. He did not take the Ambien for the study. He says he still wakes at night and has trouble getting back to sleep. This happens "almost every night" and it takes 2-3 hours to get back to sleep. He says he never sleeps on his back at home.</div>Review of Systems: ROS as noted in the [...]
== END 2021-04-20 11:58 | disposition home or self-care (01) ==
LOC: LBN 11:57
PROVIDERS: PCP Emergency Medicine; Visit Provider Urology
DX: N40.1 Benign prostatic hyperplasia with lower urinary tract symptoms
CPT/HCPCS: 84153

== ENCOUNTER 2022-01-04 02:04 | Outpatient (CLI) | payer MEDICARE, BC, SELFPAY ==
[2022-01-04 10:36] LABS: Iron 61 ug/dL (65-175); Total Iron Binding Capacity 273 ug/dL (250-450); Transferrin Sat 22 % (20-55)
[2022-01-04 10:49] LABS: Anion Gap 5.3 mmol/L (3-11); BUN 17 mg/dL (7-18); CO2 30.7 mmol/L (21.0-32.0); CREATININE 1.2 mg/dL (0.70-1.30); Calculated LDL 57 mg/dL (<100); Chloride 107 mmol/L (98-107); Cholesterol 116 mg/dL (<200); Estimated GFR 61.52 (mL/min/1.73m2); Ferritin 187 ng/mL (26-388); Glucose 115 mg/dL (74-106); HDL Cholesterol 38 mg/dL (40-60); Potassium 4.2 mmol/L (3.5-5.1); Sodium 143 mmol/L (136-145); Triglyceride 106 mg/dL (<150)
== END 2022-01-04 02:05 | disposition home or self-care (01) ==
LOC: LBO 02:05
PROVIDERS: PCP Family Medicine; Visit Provider Family Medicine
DX: D64.9 Anemia, unspecified (principal); E87.1 Hypo-osmolality and hyponatremia; E78.5 Hyperlipidemia, unspecified
CPT/HCPCS: 36415; 80048; 80061; 82728; 83540; 83550

== ENCOUNTER → 2022-04-26 09:45 | Outpatient (BNVA) | payer MEDICARE, BC, SELFPAY | PROVIDERS: PCP Family Medicine; Referring Provider Family Medicine; Visit Provider Urology | DX: N40.1 Benign prostatic hyperplasia with lower urinary tract symptoms (principal); N13.8 Other obstructive and reflux uropathy | CPT/HCPCS: 51798; 99213 ==

== ENCOUNTER 2022-04-26 11:38 | Outpatient (REF) | payer MEDICARE, BC, SELFPAY ==
[2022-04-26 22:35] LABS: PSA, Diagnostic 2.5 ng/mL (<=6.5)
== END 2022-04-26 11:39 | disposition home or self-care (01) ==
LOC: LBN 11:38
PROVIDERS: PCP Family Medicine; Visit Provider Urology
DX: N40.1 Benign prostatic hyperplasia with lower urinary tract symptoms (principal)
CPT/HCPCS: 84153

== ENCOUNTER 2023-01-02 10:14 | Outpatient (CLI) | payer MEDICARE, BC, SELFPAY ==
[2023-01-02 12:28] LABS: HCT 43.2 % (40.0-50.0); HGB 14.6 g/dL (13.5-17.5); MCH 29.3 pg (27.0-33.0); MCHC 33.8 % (32.0-36.0); MCV 87 fL (80-95); Platelet Count 251 10^3/uL (130-400); RBC 4.99 10^6/uL (4.36-5.78); RDW 14.3 % (11.8-14.1); RDW-SD 45.4 fL; WBC 6.03 10^3/uL (4.4-10.8)
[2023-01-02 12:42] LABS: Hemoglobin A1C 5.6 % (<5.7)
[2023-01-02 12:47] LABS: Calculated LDL 64 mg/dL (<100); Cholesterol 130 mg/dL (<200); HDL Cholesterol 44 mg/dL (40-60); Triglyceride 112 mg/dL (<150)
== END 2023-01-02 10:15 | disposition home or self-care (01) ==
LOC: LOS 10:15
PROVIDERS: PCP Family Medicine; Referring Provider Family Medicine; Visit Provider Family Medicine
DX: E78.5 Hyperlipidemia, unspecified (principal); R53.83 Other fatigue; E11.69 Type 2 diabetes mellitus with other specified complication
CPT/HCPCS: 36415; 80061; 85027; 83036

== ENCOUNTER → 2023-04-29 10:16 | Outpatient (BNVA) | payer MEDICARE, BC, SELFPAY | PROVIDERS: PCP Family Medicine; Referring Provider Family Medicine; Visit Provider Urology | DX: N40.1 Benign prostatic hyperplasia with lower urinary tract symptoms (principal); N13.8 Other obstructive and reflux uropathy; R35.1 Nocturia | CPT/HCPCS: 76775; 99214 ==

== ENCOUNTER 2023-04-29 12:35 | Outpatient (CLI) | payer MEDICARE, BC, SELFPAY ==
[2023-04-29 13:13] LABS: BUN 19 mg/dL (7-18); CREATININE 1.1 mg/dL (0.70-1.30); Estimated GFR 67.86 (mL/min/1.73m2)
[2023-04-29 19:07] LABS: PSA, Diagnostic 2.5 ng/mL (<=6.5)
== END 2023-04-29 12:36 | disposition home or self-care (01) ==
LOC: LBO 12:35
PROVIDERS: PCP Family Medicine; Visit Provider Urology
DX: N13.8 Other obstructive and reflux uropathy (principal); N40.1 Benign prostatic hyperplasia with lower urinary tract symptoms
CPT/HCPCS: 36415; 76775; 84520; 99214; 82565; 84153

== ENCOUNTER → 2024-05-04 10:15 | Outpatient (BNVA) | payer MEDICARE, BC, SELFPAY | PROVIDERS: PCP Family Medicine; Visit Provider Urology | DX: R35.1 Nocturia (principal); N40.1 Benign prostatic hyperplasia with lower urinary tract symptoms | CPT/HCPCS: 99214 ==

== ENCOUNTER 2024-05-04 13:59 | Outpatient (CLI) | payer MEDICARE, BC, SELFPAY ==
[2024-05-04 11:39] LABS: Abs Immature Grans 0.02 10^3/uL (0.0-0.06); Absolute Basophil Count 0.03 10^3/uL (0.0-0.2); Absolute Eosinophil Count 0.18 10^3/uL (0.0-0.7); Absolute Lymphocyte Count 2.08 10^3/uL (1.2-3.4); Absolute Monocyte Count 0.49 10^3/uL (0.1-0.8); Absolute Neutrophil Count 3.38 10^3/uL (1.2-6.7); Basophils % 0.5 %; Eosinophils % 2.9 %; HCT 44.4 % (40.0-50.0); Immature Grans % 0.3 %; Lymphocytes % 33.7 %; MCH 29.4 pg (27.0-33.0); MCHC 33.8 % (32.0-36.0); MCV 87 fL (80-95); Monocytes % 7.9 %; Neutrophils % 54.7 %; Platelet Count 241 10^3/uL (130-400); RBC 5.11 10^6/uL (4.36-5.78); RDW 13.4 % (11.8-14.1); RDW-SD 42.6 fL; WBC 6.18 10^3/uL (4.4-10.8)
[2024-05-04 11:59] LABS: ALT 28 U/L (16-63); AST 20 U/L (15-37); Alkaline Phosphatase 104 U/L (46-116); Anion Gap 6.4 mmol/L (3-11); BUN 14 mg/dL (7-18); Bilirubin, Total 0.78 mg/dL (0.2-1.0); CO2 30.6 mmol/L (21.0-32.0); CREATININE 1.2 mg/dL (0.70-1.30); Calcium 9.6 mg/dL (8.5-10.1); Chloride 107 mmol/L (98-107); Estimated GFR 60.75 (mL/min/1.73m2); Glucose 87 mg/dL (74-106); Potassium 3.9 mmol/L (3.5-5.1); Sodium 144 mmol/L (136-145); Total Protein 7.5 g/dL (6.4-8.2)
[2024-05-04 18:08] LABS: PSA, Diagnostic 3.3 ng/mL (<=6.5)
== END 2024-05-04 14:00 | disposition home or self-care (01) ==
LOC: LBO 14:00
PROVIDERS: PCP Family Medicine; Visit Provider Urology
DX: N13.8 Other obstructive and reflux uropathy (principal); N40.1 Benign prostatic hyperplasia with lower urinary tract symptoms; I63.331 Cerebral infarction due to thrombosis of right posterior cerebral artery
CPT/HCPCS: 36415; 80053; 99214; 84153; 85025

== ENCOUNTER 2024-11-11 19:37 | Emergency (ER) | payer MEDICARE, BC, SELFPAY ==
[2024-11-11 19:44] VITALS: PULSE 69
[2024-11-11 19:46] VITALS: PULSE 89; RESP 20; TEMP 36.9; O2SAT 99
[2024-11-11 19:49] VITALS: BP 148/83; PULSE 89; RESP 20; TEMP 36.9; O2SAT 99
[2024-11-11 19:50] VITALS: PULSE 60
[2024-11-11] MEDS: ACETAMINOPHEN 500 MG/50 ML BAG 200 MG IVPB (20:13)
[2024-11-11] MEDS: MORPHine 10 MG/ML VIAL 2 MG IVP (20:13)
[2024-11-11 20:16] LABS: Abs Immature Grans 0.02 10^3/uL (0.0-0.06); HCT 41.4 % (40.0-50.0); HGB 14.1 g/dL (13.5-17.5); Immature Grans % 0.2 %; MCH 28.7 pg (27.0-33.0); MCHC 34.1 % (32.0-36.0); MCV 84 fL (80-95); MPV 10.5 fL (8.0-11.0); Platelet Count 222 10^3/uL (130-400); RBC 4.91 10^6/uL (4.36-5.78); RDW 13.6 % (11.8-14.1); RDW-SD 41.9 fL; WBC 9.65 10^3/uL (4.4-10.8)
[2024-11-11] MEDS: Normal Saline - Diluent 50 ML VIAL IJ (20:20)
[2024-11-11] MEDS: Omnipaque 350 MG/ML 100 ML BTL 75 ML IJ (20:22)
--- NOTE | 2024-11-11 20:27 | DI.CT_ITS ---
Exam(s) CT ABDOMEN PELVIS W EXAM: CT ABDOMEN PELVIS W CLINICAL HISTORY: LLQ pain. TECHNIQUE: Imaging Protocol: Axial computed tomography images with coronal and sagittal reformatted images were created and reviewed CONTRAST MATERIAL: Intravenous: Omnipaque-350 75cc Oral: None FINDINGS: VISUALIZED LUNG BASES: No nodules nor pleural effusions evident. ABDOMEN: There is no ascites. LIVER: There are no focal hepatic lesions evident. No dilated intrahepatic ducts. GALLBLADDER/BILIARY: There is a small density near the neck of the gallbladder which measures 6 mm, noncalcified. This is either a polyp or gallstone. The gallbladder is not distended and there is no gallbladder wall edema. CBD is not dilated. PANCREAS: No evidence of pancreatic mass nor dilatation of the pancreatic duct. SPLEEN: Spleen is not enlarged. No obvious intrasplenic lesions. Splenic and portal veins are patent. ADRENALS: There are no significant adrenal masses. KIDNEYS:Right kidney unremarkable. There is streaking around the left kidney. No solid renal masses nor cysts. However, there is mild left-sided hydronephrosis and hydroureter. The culprit tiny 1-2 mm calculus is in the distal left ureter at the left ureterovesical junction. URINARY BLADDER: Not distended. No obvious masses. No clots in the lumen. Prostate is enlarged and measures 6 cm wide. Seminal vesicles unremarkable. ABDOMINAL AORTA: Calcified but not enlarged. LYMPH NODES:There is no retroperitoneal nor paraaortic adenopathy. ABDOMINAL WALL: There is a fat containing left inguinal hernia. There is a left-sided hydrocele. GI: There is no evidence of bowel obstruction, free air, nor abscess. PELVIS: GI: Appendix not seen and possibly surgically absent.There is diverticulosis in the sigmoid but no evidence of obvious acute diverticulitis. LYMPH NODES: There is no intrapelvic nor inguinal adenopathy. REPRODUCTIVE: Enlarged prostate gland. Measures 6 cm wide. There is no obturator adenopathy. URINARY BLADDER: As above OSSEOUS: No fractures and no significant osseous lesions. Multilevel chronic degenerative disc disease. Also multilevel Schmorl's node invaginations but no compression fractures. IMPRESSION: 1. The main acute finding here is mild left-sided hydronephrosis and hydroureter which is due to a solitary 2 millimeter calculus in the lower left ureter at the ureterovesical junction. There are no other calculi seen in the collecting system above this level nor on the opposite-right side. There are no calculi seen in the urinary bladder. 2. Sigmoid diverticulosis without evidence of acute diverticulitis. 3. Fat containing left inguinal hernia. Left-sided hydrocele noted 4. Probable small gallstone versus 6 mm polyp in the gallbladder neck region. No evidence of acute cholecystitis nor significant dilatation of the biliary tree. Preliminary virtual Radiology report was reviewed. RADIATION DOSE DELIVERED: 496.11mGy.cm Total DLP DATA REPOSITORY: All CT scans at this facility are submitted to the National Radiology Data Registry (NRDR) Dose Index Registry (DIR) with the [employer] (ACR). RADIATION OPTIMIZATION: All CT scans at this facility use at least one of these dose optimization techniques: automated exposure control; mA and/or kV adjustment per patient size (includes targeted exams where dose is matched to clinical indication); or iterative reconstruction.
[2024-11-11 20:39] LABS: ALT 19 U/L (16-63); AST 17 U/L (15-37); Albumin 4.1 g/dL (3.4-5.0); Alkaline Phosphatase 88 U/L (46-116); Anion Gap 7.1 mmol/L (3-11); BUN 19 mg/dL (7-18); Bilirubin, Total 0.9 mg/dL (0.2-1.0); CO2 28.9 mmol/L (21.0-32.0); Calcium 9.1 mg/dL (8.5-10.1); Chloride 107 mmol/L (98-107); Estimated GFR 46.19 (mL/min/1.73m2); Glucose 152 mg/dL (74-106); Lipase 29 U/L (<78); Potassium 3.7 mmol/L (3.5-5.1); Sodium 143 mmol/L (136-145); Total Protein 6.9 g/dL (6.4-8.2)
--- NOTE | 2024-11-11 21:00 | DI.VRAD_ITS ---
PROCEDURE INFORMATION: Exam: CT Abdomen And Pelvis With Contrast Exam date and time: 11/11/2024 8:15 PM Age: 84 years old Clinical indication: Abdominal pain; Localized; Left lower quadrant (llq); Prior surgery; Surgery date: 6+ months; Surgery type: Appendectomy TECHNIQUE: Imaging protocol: Computed tomography of the abdomen and pelvis with contrast. Radiation optimization: All CT scans at this facility use at least one of these dose optimization techniques: automated exposure control; mA and/or kV adjustment per patient size (includes targeted exams where dose is matched to clinical indication); or iterative reconstruction. Contrast material: [id number]; Contrast volume: 75 ml; Contrast route: INTRAVENOUS (IV); COMPARISON: CR XR CHEST 2V PA LATERAL 08/15/2020 2:49 PM FINDINGS: Liver: Normal. No mass. Gallbladder and biliary ducts: Probable gallstone. Pancreas: Normal. No ductal dilation. Spleen: Normal. No splenomegaly. Adrenal glands: Normal. No mass. Kidneys and ureters: There is left perinephric edema, mild renal enlargement and delayed perfusion. There is mild to moderate left hydronephrosis and hydroureter. There is a 2 mm distal left ureteral obstructing calculus just above the left UVJ series 8, image 93. Stomach and bowel: Diverticulosis without acute diverticulitis. Appendix: No evidence of appendicitis. Intraperitoneal space: Unremarkable. No free air. No significant fluid collection. Vasculature: Moderate atherosclerotic change present in the vasculature. Lymph nodes: Unremarkable. No enlarged lymph nodes. Urinary bladder: The bladder is not well distended. Reproductive: Unremarkable as visualized. Bones/joints: Moderate lumbar spondylosis. Soft tissues: There is a small to moderate-sized left-sided fat containing inguinal hernia. IMPRESSION: Distal left ureteral obstructing calculus. Dictated and Authenticated by: Beverly Rios MD. Orderin Alfredo Benítez MD
[2024-11-11 21:11] LABS: Glucose Negative (Negative)
[2024-11-11] MEDS: Tamsulosin 0.4 MG CAPCR PO (21:22)
[2024-11-11] MEDS: Normal Saline 500 ML IV (21:22)
[2024-11-11 22:15] VITALS: RESP 20
[2024-11-11 22:17] VITALS: BP 136/78; PULSE 68; RESP 18; TEMP 36.4; O2SAT 98
--- NOTE | 2024-11-11 23:08 | W.ED.GENAD ---
Discharge Plan Disposition Patient Disposition: Home Condition: Stable Discharge Details Clinical Impression: Left ureteral stone Primary Care Provider: Ángel Tai ED Provider: Jackelin Fuentes Home Meds and New Rx's Prescriptions: New tamsulosin [Flomax] 0.4 mg capsule 0.4 mg PO QHS Qty: 7 0RF oxycodone 5 mg tablet 5 mg PO Q8H PRNQty: 6 0RF Continued clopidogrel [Plavix] 75 mg tablet 75 mg PO DAILY Qty: 90 3RF Rx Instructions: take 75mg daily thereafter. atorvastatin 20 mg tablet 20 mg PO DAILY Qty: 90 4RF ICaps AREDS2 250 mg-200 unit -12.5 mg-1 mg capsule 1 cap PO DAILY Centrum Silver Ultra Men's [id number] mcg tablet 1 tab PO DAILY amlodipine 2.5 mg tablet 2.5 mg PO DAILY Qty: 90 3RF Discharge Instructions Instructions: How to Strain Your Urine, Kidney Stone, Adult ED Additional Instructions: Strain your urine Take Tylenol 650 every 6 hours for pain Take the Flomax daily I have written you for a prescription for oxycodone this is addictive and can make you constipated do not drive for 8 hours after taking this medication Follow-up with urology and bring the stone if you are able Return with fever, chills, decreased urination, or should any new concerns arise Referrals: Stephane Cook MD [ [facility] STAFF PHYSICIAN, Urology] Ángel Tai MD [Primary Care Provider, Medicine] HPI General Date/Time Provider Initiated Documentation: 11/11/24 19:40. HPI Narrative: 84-year-old male with erectile dysfunction, shortness of breath, cerebrovascular accident, hyperlipidemia, and hypertension. Presents with abrupt onset of left lower quadrant pain at 1500 hours, accompanied by nausea and vomiting x1. Pain is intermittent. No similar past symptoms. No fever, chills, or hematuria. Related Data Home Medications ?Medication ?Instructions ?Recorded ?Confirmed [id number] 300 mcg-K 60 1 tab PO DAILY 07/03/23 07/15/24 mcg-lycop 600 mcg-lutein 300 mcg tablet (Centrum Silver Ultra Men's) vit C 250 mg-vit E 200 unit-zinc 1 cap PO DAILY 07/03/23 07/15/24 ox 12.5 [id number] capsule (ICaps AREDS2) amlodipine 2.5 mg tablet 2.5 mg PO DAILY #90 tabs 05/03/24 07/15/24 atorvastatin 20 mg tablet 20 mg PO DAILY #90 tabs 07/15/24 07/15/24 clopidogrel 75 mg tablet (Plavix) 75 mg PO DAILY #90 tab-caps 07/15/24 07/15/24 oxycodone 5 mg tablet 5 mg PO Q8H PRN #6 tabs 11/11/24 tamsulosin 0.4 mg capsule (Flomax) 0.4 mg PO QHS #7 caps 11/11/24 Previous Rx's ?Medication ?Instructions ?Recorded amlodipine 2.5 mg tablet 2.5 mg PO DAILY #90 tabs 05/03/24 atorvastatin 20 mg tablet 20 mg PO DAILY #90 tabs 07/15/24 clopidogrel 75 mg tablet (Plavix) 75 mg PO DAILY #90 tab-caps 07/15/24 oxycodone 5 mg tablet 5 mg PO Q8H PRN #6 tabs 11/11/24 tamsulosin 0.4 mg capsule (Flomax) 0.4 mg PO QHS #7 caps 11/11/24 Allergies Allergy/AdvReac Type Severity Reaction Status Date / Time No Known Allergies Allergy Verified 11/11/24 19:52 General Stated Complaint: Abd Prob ELVIS: 3 Exam Narrative Exam Narrative: General Appearance: Normal. Vital signs: Within normal limits. HEENT: Within normal limits. Respiratory: Within normal limits. Gastrointestinal: Mild tenderness in the left lower quadrant without rebound or guarding. No flank tenderness. Skin: Warm and dry, no rash. Neurological: Normal. Other observations: Exam benign. Course Vital Signs Vital signs: Vital Signs Temperature 36.9 C 11/11/24 19:46 Pulse 89 11/11/24 19:46 Respiratory Rate 20 11/11/24 19:46 Pulse Oximetry 99 11/11/24 19:46 Temperature 36.4 C 11/11/24 22:17 Temperature Source Oral 11/11/24 22:17 Pulse 68 11/11/24 22:17 Pulse 60 11/11/24 19:50 Respiratory Rate 18 11/11/24 22:17 Respiratory Effort Normal 11/11/24 22:15 Respiratory Depth Normal 11/11/24 22:15 Respiratory Pattern Normal 11/11/24 22:15 Blood Pressure 136/78 11/11/24 22:17 Blood Pressure Mean 97 11/11/24 22:17 Blood Pressure Position Sitting 11/11/24 19:49 Pulse Oximetry 98 11/11/24 22:17 Oxygen Delivery Method Room Air 11/11/24 22:17 Oxygen Flow Rate 0 11/11/24 22:17 Pain Level 10 11/11/24 20:13 Lab/Test Results Lab/Test Results: Laboratory Tests Range/Units 11/11/24 11/11/24 20:00 20:37 WBC (4.4-10.8) 10^3/uL 9.65 RBC (4.36-5.78) 10^6/uL 4.91 Hgb (13.5-17.5) g/dL 14.1 Hct (40.0-50.0) % 41.4 MCV (80-95) fL 84 MCH (27.0-33.0) pg 28.7 MCHC (32.0-36.0) % 34.1 RDW (11.8-14.1) % 13.6 Plt Count (130-400) 10^3/uL 222 MPV (8.0-11.0) fL 10.5 Immature Gran % % 0.2 Neutrophils % % 86.7 Lymphocytes % % 8.9 Monocytes % % 4.0 Eosinophils % % 0.1 Basophils % % 0.1 Nucleated RBC % (0.0-0.3) % 0.0 Absolute Neutrophils (1.2-6.7) 10^3/uL 8.36 H Absolute Lymphocytes (1.2-3.4) 10^3/uL 0.86 L Absolute Monocytes (0.1-0.8) 10^3/uL 0.39 Absolute Eosinophils (0.0-0.7) 10^3/uL 0.01 Absolute Basophils (0.0-0.2) 10^3/uL 0.01 Sodium (136-145) mmol/L 143 Potassium (3.5-5.1) mmol/L 3.7 Chloride (98-107) mmol/L 107 Carbon Dioxide (21.0-32.0) mmol/L 28.9 Anion Gap (3-11) mmol/L 7.1 BUN (7-18) mg/dL 19 H Creatinine (0.70-1.30) mg/dL 1.5 H Est GFR (CKD-EPI 2020) (mL/min/1.73m2) 46.19 Glucose (74-106) mg/dL 152 H Calcium (8.5-10.1) mg/dL 9.1 Total Bilirubin (0.2-1.0) mg/dL 0.9 AST (15-37) U/L 17 ALT (16-63) U/L 19 Alkaline Phosphatase (46-116) U/L 88 Total Protein (6.4-8.2) g/dL 6.9 Albumin (3.4-5.0) g/dL 4.1 Lipase (<78) U/L 29 Urine Color (Yellow) Yellow Urine Clarity (Clear) Clear Urine pH (5-8) 6.5 Ur Specific [place] (1.005-1.025) 1.015 Urine Protein (Neg-Trace) mg/dL Negative Urine Ketones (Negative) mg/dL 15 H Urine Blood (Negative) Negative Urine Nitrite (Negative) Negative Urine Bilirubin (Negative) Negative Urine Urobilinogen (Up to 0.2) mg/dL 0.2 Ur Leukocyte Esterase (Negative) Negative Urine Glucose (Negative) mg/dL Negative Medical Decision Making - Laboratory Studies: - WBC count: reassuring - Creatinine: elevated at 1.5 - Urinalysis: negative for blood or significant acute abnormality - No secondary infection - Imaging: - CT abdomen and pelvis: shows stone in left ureter at UVJ Initial Assessment: 84-year-old male with abrupt onset of left lower quadrant pain, nausea, and vomiting. Mild tenderness in the left lower quadrant without rebound or guarding. No flank tenderness. WBC count reassuring. Creatinine elevated at 1.5. Urinalysis negative for blood or significant acute abnormality. No secondary infection. Pain-free at reassessment. CT abdomen and pelvis shows stone in left ureter at UVJ. Differential Diagnosis: - Ureteral stone: CT abdomen and pelvis shows stone in left ureter at UVJ. Follow-up with urology. - Infection: No evidence of secondary infection on urinalysis. Unlikely. ED Course: - Administered 500 cm? fluids - Given Flomax - CT abdomen and pelvis shows stone in left ureter at UVJ - Provided oxycodone and antiemetics for home use - Pain-free at reassessment Final Assessment: 84-year-old male with abrupt onset of left lower quadrant pain, nausea, and vomiting. CT abdomen and pelvis shows stone in left ureter at UVJ. Administered fluids and Flomax. Pain-free at reassessment. Provided oxycodone and antiemetics for home use. Clinical Impression: - Ureteral stone Disposition: Discharge: Home. Return precautions reviewed. Follow-Up: Follow-up with urology Patient Education: Encouraged hydration. Return precautions reviewed. 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 Found to have R RADIOLOGY RESIDENT P2 occlusion and L vert occlusion. On plavix. F/U with PCP Dr. Fortunato mcneill Tubular adenoma of colon (Chronic 07/05/16) Scrotal varices (Chronic) Guaman's metatarsalgia (Chronic) Low back pain (Chronic) Hyperlipidemia (Chronic 09/11/12) Hemorrhoids (Chronic) Anemia (Chronic 03/06/03) rectal polyp and duodenitis Anal and rectal polyp (Chronic) Dr. Santos Benign prostatic hyperplasia with urinary obstruction (Chronic) We again discussed treatment options including observation, behavioral modification, medical therapy and surgery. At this point, his symptoms are not bothersome enough that he wants to start medical or surgical therapy. We discussed the controversy surrounding prostate cancer screening and PSA testing. Given the longevity in his family, MR Aguilar is interested in continuing his yearly PSA monitoring. Medical History (Updated 11/11/24 @ 21:30 by DRU Leon) Tubular adenoma (~02/2020) Benign prostatic hyperplasia (09/11/12) Hemorrhoids Low back pain Anal and rectal polyp BPH (benign prostatic hyperplasia) Surgical History (Updated 03/10/20 @ 15:28 by Shruthi Perez RN) History of colonoscopy with polypectomy (~02/24/20) Colonoscopy - IV Sedation (07/05/16) 02/2020 Stoiber Appendectomy (~1965) 1965 Family History (Updated 07/16/24 @ 11:36 by Zina Slaughter) Mother , age 99 No problems noted. Father , age 92 No problems noted. Sister No problems noted. Sister No problems noted. Sister No problems noted. Brother No problems noted. Brother , 67 Alcohol abuse Tobacco use Son No problems noted. Daughter No problems noted. Brother , age 79 Diabetes Brother , age 76 Diabetes Stroke Paternal Grandfather , 64 Stroke Maternal Grandmother , 38 No problems noted. Paternal Grandmother No problems noted. Maternal Grandfather No problems noted. Social History (Updated 07/16/24 @ 11:32 by Zina Slaughter) Smoking/Tobacco Use Status: Never Second Hand Exposure: Yes Smoking risk assessment performed?: Yes Alcohol Intake: never Drug use: Never Substance use type: does not use Counseling given: No Adopted: No Caregiver/Support person: No Household members: spouse Housing: house Number of Children: 2 number of grandchildren: 2 Communication Needs: Corrective Lenses Education Level: college Do you need help understanding health information?: Rarely current occupation: [employer]- Retired Pets and animals: Yes Pets and animals: dog(s) Sexually active: No Do you think of yourself as: straight/heterosexual Current gender identity: male What is your relationship status?: How often do you talk on the phone with friends or family?: once per week How often do you get together with friends or relatives?: decline to answer How often do you attend buddhism or buddhist services?: decline to answer Do you belong to any clubs or organized social groups?: no Panel score (0-1 are the most socially isolated patients): 1 What type of physical activity do you participate in: walking Duration: > 90 minutes/day Frequency: 5-6 times per week Linda/Buddhist: Caodaism Special linda needs: No Agree to transfusion: Yes Seatbelt use: always Helmet use: Yes Helmet use: always Drive intox or ride w/intox class c truck driver: No Working smoke detector in home: Yes Carbon monox detector in home: Yes Firearms in home: Yes Firearms unloaded and locked: No Do you feel safe at home: Yes Do you feel safe in your relationship?: Yes Victim of physical abuse: No Victim of emotional abuse: No Victim of sexual abuse: No Would you like helpful sources: No
== END 2024-11-11 22:18 | disposition home or self-care (01) ==
PROVIDERS: Emergency Provider Physician Assistant; PCP Family Medicine
DX: N20.1 Calculus of ureter (principal)
CPT/HCPCS: 99285; 99284; 96374; 96375; 80053; 83690; 96361; 74177; 81003; 85025; J0131; J2270; J3490